=== PATIENT | male | born 1960 | race Caucasian/White ===

== ENCOUNTER 2016-07-22 17:39 | Emergency (ER) | payer BC ==
[2016-07-22 17:49] VITALS: BP 181/100
--- OUTSIDE RECORDS SUMMARY | 2016-07-22 18:00 | XMS REPORT | Continuity of Care Document ---
:1960 Author Organization [facility] ([facility]) [place] [address] Phone [phone] Care Team Providers Name Role Phone [phone], Need To Check Primary Care Provider Unavailable Source Comments This disclosure is being made pursuant to the Care Everywhere program, applicable federal and state laws, and may not contain all informaitonavailable regarding this patient.[facility] ([facility]) Active Allergies and Adverse Reactions Not on File Current Medications Not on file Active Problems Not on file Social History Tobacco Use Types Packs/Day Years Used Date Never Assessed Plan of Care Health Maintenance Due Date Last Done Comments HCV Screening 1960 Hepatitis B Vaccine (1 of 3 - Primary Series) 1960 Tdap Vaccine 1973 Lipid Disorder Screening 1980 MMR Vaccine 1980 Td Vaccine 1980 Colonoscopy 06/06/2012 Prostate Cancer Screening 2012 Influenza Vaccine: Seasonal (#1) 12/27/2015 Results from Last 3 Months Not on file
[2016-07-22] MEDS ORDERED: CEFUROXIME AXETIL 500 MG TABLET PO ONE (18:04)
[2016-07-22] MEDS ORDERED: predniSONE 20 MG TABLET PO ONE (18:04)
[2016-07-22] MEDS ORDERED: predniSONE 20 MG TABLET ONE (18:07)
[2016-07-22] MEDS ORDERED: CEFUROXIME AXETIL 500 MG TABLET ONE (18:07)
--- NOTE | 2016-07-22 18:13 | ERNOTE ---
ENT HPI Date of Service: 07/22/16 Presenting Symptoms: other - sore throat and difficulty swallowing Time Seen by Provider: 07/22/16 17:51 Source: patient - Immun/Allergies/Home Medications Immunizations: IMMUNIZATION HX Immunizations Up to Date Yes History of Influenza Vaccine Yes Hx Pneumococcal Vaccination No Allergies/Adverse Reactions: Allergies Allergy/AdvReac Type Severity Reaction Status Date / Time Penicillins Allergy Hives Verified 07/22/16 17:49 Sulfa (Sulfonamide Allergy Vomiting Verified 07/22/16 17:49 Antibiotics) [Sulfa(Sulfonamide Antibiotics)] Home Medications: HOME MEDICATIONS Cefuroxime Axetil [Ceftin] 500 mg PO BID #20 tab 07/22/16 [Last Taken Unknown] Cephalexin [Keflex] 500 mg PO BID 07/22/16 [Last Taken Unknown] Prednisone [Deltasone] 20 mg PO BID #10 tablet 07/22/16 [Last Taken Unknown] - History of Present Illness Severity: Present: moderate ENT Location: Present: throat Prearrival Treatment: Present: prescription meds Associated Symptoms - ENT: Reports: sore throat Review of Systems - Review of Systems Constitutional: Present: See HPI EYE: Present: no symptoms reported ENT: Present: sore throat Respiratory: Present: no symptoms reported Cardiology: Present: no symptoms reported Gastrointestinal/Abdominal: Present: no symptoms reported Genitourinary: Present: no symptoms reported Musculoskeletal: Present: no symptoms reported Skin: Present: no symptoms reported Neurological: Present: no symptoms reported Endocrine: Present: no symptoms reported Hematologic/Lymphatic: Present: no symptoms reported Psych: Present: no symptoms reported - Patient's Past Medical History Patient History - Medical: Arthritis, Diabetes Type 2, Obesity Patient History - Cardiac/Respiratory: Hyperlipidemia, Sleep Apnea Patient History - Cancer: No Hx of Cancer Patient History - Surgical Procedures: Other Patient History - Other: None - Family History Mother Family History - Medical: - Social History Living Situations: alone Abuse History: No History of abuse Psych History: No pertinent hx Smoking Status: Never smoker Alcohol Use: none Drug Use: none - Immunizations Immunizations Up to Date: Yes Hx Pneumococcal Vaccination: No History of Influenza Vaccine: Yes Physical Exam - Physical Exam General Appearance: Present: wd/wn, alert, moderate distress Eye Exam: Normal inspection: bilateral, PERRL: bilateral Ears, Nose, Throat: Present: hearing grossly normal, pharyngeal erythema Neck: Present: lymphadenopathy (R), lymphadenopathy (L) Respiratory: Present: no respiratory distress, normal breath sounds, no accessory muscle use, chest nontender, lungs clear Cardiovascular/Chest: Present: regular rate, rhythm, no murmur, normal peripheral pulses Gastrointestinal/Abdominal: Present: normal bowel sounds, nontender, nondistended, soft, no organomegaly Rectal Exam: Present: deferred Back Exam: Present: normal inspection, normal range of motion Extremity Exam: Present: normal inspection, non-tender, no edema, normal range of motion Neurological Exam: Present: alert, oriented, normal mood/affect Skin Exam: Present: normal color, warm/dry Lymphatic Exam: Present: no adenopathy ED Progress - Vital Signs Patient's Vital Signs:: I have reviewed the patient's vital signs. Vital Signs: Vital Signs 07/22/16 17:46 Temperature 36.2 C L Pulse Rate 73 Respiratory 14 Rate Blood Pressure 181/100 O2 Sat by Pulse 95 Oximetry - Progress/Reassessment Chief Complaint: Sore Throat Progress:: Unchanged - Transfer of Care Expected Disposition: Discharge Plan - Plan Plan: Pt is not doing well on straight Keflex, will change the antibiotic to Ceftin and add Prednisone to help with the erythema and the difficulty swallowing. Pt does not have any stridor. Departure Clinical Impression: Pharyngitis Qualifiers: Pharyngitis/tonsillitis etiology: unspecified etiology Qualified Code(s): J02.9 - Acute pharyngitis, unspecified - Departure Disposition: Home self-care Condition: Good Instructions: Pharyngitis, [id number] Prescriptions: Cefuroxime Axetil [Ceftin] 500 mg PO BID #20 tab Prednisone [Deltasone] 20 mg PO BID #10 tablet
== END 2016-07-22 18:22 | disposition home or self-care (01) ==
LOC: ER 17:39
DX: J02.9 Acute pharyngitis, unspecified (principal)

== ENCOUNTER 2020-08-01 18:30 | Observation (INO) ==
[2020-08-01] MEDS ORDERED: ONDANSETRON HCL/PF 2 MG/ML VIAL ONE (18:44)
[2020-08-01] MEDS ORDERED: ONDANSETRON HCL/PF 2 MG/ML VIAL IV ONE (18:44)
--- NOTE | 2020-08-01 19:03 | ERNOTE ---
Dizziness ER Record Date of Service: 08/01/20 Presenting Symptoms: dizziness Time Seen by Provider: 08/01/20 18:44 Source: patient Exam Limitations: no limitations Immunizations: IMMUNIZATION HX Immunizations Up to Date Yes History of Influenza Vaccine Yes Hx Pneumococcal Vaccination No Allergies/Adverse Reactions: Allergies Allergy/AdvReac Type Severity Reaction Status Date / Time Penicillins Allergy Mild Hives Verified 08/01/20 18:38 Sulfa (Sulfonamide Allergy Mild Vomiting Verified 08/01/20 18:38 Antibiotics) [Sulfa(Sulfonamide Antibiotics)] Home Medications: HOME MEDICATIONS B-complex with vitamin C 1 tab PO DAILY 11/29/18 [Last Taken Unknown] ascorbic acid (vitamin C) 1,000 mg tablet 1 g PO DAILY 11/29/18 [Last Taken Unknown] - Pain Score Pain Score #1 Pain Score: 0 - History of Present Illness Narrative: The patient is a 60 year old male who presents via EMS for dizziness which has been present since 0. There are associated symptoms of diaphoresis, nausea and vomiting. The patient denies pain. There are alleviating factors of rest. There are aggravating factors of activity. Previous treatments have included: none. The past medical history includes: DM, HTN and HLD. The social history is positive for former smoker. The patient has had no known ill contacts. Patient states he was shopping at [employer] and developed abrupt dizziness and with rest was able to resolve symptoms. Patient states that after arriving to his car he again had recurrent symptoms. Patient states that he was able to drive himself home due to resolved symptoms but then upon arrival home had recurrent symptoms and had his bring him to ER. Review of Systems - Review of Systems Constitutional: Present: diaphoresis. Absent: fever, chills EYE: Present: no symptoms reported. Absent: vision changes ENT: Present: nose congestion, nasal drainage. Absent: ear pain, sore throat Respiratory: Present: no symptoms reported. Absent: shortness of breath, cough Cardiology: Present: no symptoms reported. Absent: chest pain Gastrointestinal/Abdominal: Present: nausea, vomiting. Absent: diarrhea, abdominal pain Genitourinary: Present: no symptoms reported. Absent: dysuria, decreased urinary output Musculoskeletal: Present: no symptoms reported Skin: Present: no symptoms reported Neurological: Present: dizziness/light-headedness. Absent: headache, weakness, numbness All Other Systems: All systems neg except as marked Medical History (Last Reviewed 08/01/20 @ 18:55 by PRAKASH Miller) Deviated nasal septum Onset Date: Unknown Years ago Diabetes Onset Date: Unknown Hyperlipidemia Onset Date: Unknown Hypertension Onset Date: Unknown Surgical History: Surgical History (Last Reviewed 08/01/20 @ 18:55 by PRAKASH Miller) H/O inguinal hernia repair Onset Date: Unknown as a baby H/O lateral meniscus repair of left knee Onset Date: Unknown Dr Beck Family History: Family History (Last Reviewed 08/01/20 @ 18:55 by PRAKASH Miller) Mother , unsure-left when he was 18 No problems noted. Father Chronic emphysema syndrome Social History: (Last Reviewed 08/01/20 @ 18:55 by PRAKASH Miller) Social History: Marital status: number of children: 3 current occupational status: employed Highest level of school completed/degree received: some college, no degree Service: No Tobacco: Smoking Status: Former smoker Alcohol: alcohol intake: never Substance Use: substance use type: does not use Dietary Habits: caffeine: Yes Type: coffee eating out: rarely or never Physical Exam - Physical Exam General Appearance: Present: wd/wn, alert, mild distress Head Exam: Present: normal inspection, no evidence of injury Eye Exam: Normal inspection: bilateral, PERRL: bilateral, EOMI: bilateral Neck: Present: normal inspection, nontender Respiratory: Present: no respiratory distress, normal breath sounds, no accessory muscle use, lungs clear Cardiovascular/Chest: Present: no murmur, bradycardia Gastrointestinal/Abdominal: Present: normal bowel sounds, nontender, nondistended, soft, no organomegaly Extremity Exam: Present: extremity edema - 1+ pitting bilateral Neurological Exam: Present: alert, oriented, normal mood/affect, no motor/sensory deficits, food runner II-XII nml as tested, normal cerebellar test, other - no nystagmus, negative HINT exam, Skin Exam: Present: normal color, warm/dry Progress - Date and Time Seen: Date and Time: 08/01/20 21:50 Patient remains with improvement to symptoms intermittent nausea and without dizziness. Patient also continues to have bradycardia of rate 55-60. Normotensive. Due to per persistent intermittent symptoms of dizziness with nausea, diaphoresis and vomiting and bradycardia I have discussed case with Dr. Morocho and will plan for observation admission for continued monitoring. 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 I discussed these results and plan of care with patient and he agrees to admission for continued monitoring to rule out any cardiac events associated with symptoms. Will test for Covid and admit to observation with results. - Results and Orders Patient's Lab Results:: I have reviewed the patient's lab results. - Vital Signs Patient's Vital Signs:: I have reviewed the patient's vital signs. Vital Signs: Vital Signs 08/01/20 18:32 Temperature 35.8 C L Pulse Rate 57 L Respiratory Rate 16 Blood Pressure 138/72 O2 Sat by Pulse Oximetry 100 - EKG EKG #1 EKG: NSR - bradycardia, nonspecific ST T wave changes EKG read: Reviewed by me - X-Ray X-Ray #1 X-Ray: chest Interpretation: Reviewed by me X-ray Comments: IMPRESSION: No consolidation. Borderline cardiac silhouette enlargement. Electronically signed by Rajeev Huffman D.O.. - CT/Ultrasound CT/Ultrasound Narrative: Real radiology preliminary report CT head without contrast No CT evidence of acute intracranial abnormality. Left maxillary mall air-fluid level with frothy secretions, may represent acute sinusitis. IMPRESSION: No acute intracranial hemorrhage or mass effect. 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 MR or CT angiogram could be considered to further evaluate. Discussed with PRAKASH Miller via telephone on 08/01/2020 9:23 PM. Electronically signed by Rajeev Huffman D.O.. No radiology preliminary report CT angio chest with MIP postprocessing Negative for acute pulmonary artery embolism. Thoracic aorta of normal caliber without dissection. No consolidation pleural effusion or pneumothorax Severe spondylosis - Progress/Reassessment Chief Complaint: Dizziness Departure Clinical Impression: Dizziness, Bradycardia - Departure Disposition: Still a patient Condition: Good
[2020-08-01 19:12] LABS: Hematocrit 42.8 % (42.0-52.0); Hemoglobin 14.7 gm/dL (13.5-18.0); Mean Corpuscular Hemoglobin 28.2 pg (27-31); Mean Corpuscular Hgb Conc 34.3 g/dl (32-36); Mean Platelet Volume 9.6 fl (8-11.3); Neutrophil # 4.2 K/mm3 (1.3-6.0); Neutrophil % 69.6 % (42-75.0); Platelet Count 196 K/mm3 (150-450); Red Blood Count 5.22 M/mm3 (4.7-6.0); Red Cell Distribution Width 12.2 % (11.5-14.0); White Blood Count 6.1 K/mm3 (4.0-10.5)
[2020-08-01 19:39] LABS: ALT 34 U/L (19-67); AST 20 U/L (0-48); Albumin * 4.1 gm/dl (3.4-5.0); Alkaline Phosphatase * 60 U/L (50-170); Anion Gap 17.2 mmol/L (6.8-13.8); BUN/Creatinine Ratio 18.8 (9.0-21.6); Bilirubin, Total 0.8 mg/dL (0.0-1.1); Blood Urea Nitrogen 22 mg/dL (6-23); Ca. Corrected For Albumin 9.1 mg/dL (8.4-10.2); Calcium * 9.5 mg/dL (7.9-10.9); Carbon Dioxide 25.3 mmol/L (24-32.6); Chloride 100 mmol/L (97-106); Glucose * 154 mg/dL (70-110); Potassium 3.5 mmol/L (3.4-4.6); Sodium 139 mmol/L (132-142); Total Protein 7.6 gm/dL (6.2-8.2)
[2020-08-01 19:41] LABS: Troponin I Less than 0.017 ng/mL (0.00-0.10)
[2020-08-01 20:08] LABS: Prothrombin Time (Patient) 10.9 Seconds (9.1-10.7)
[2020-08-01 20:12] LABS: INR 1.05 INR (0.92-1.08); Partial Thrombolplastin Time 23.8 Seconds (24-32)
[2020-08-01] MEDS ORDERED: NORMAL SALINE 500 ML IV PRN (21:48)
[2020-08-01] MEDS ORDERED: ONDANSETRON HCL/PF 2 MG/ML VIAL IV PRN (22:10)
[2020-08-01 23:36] LABS: Urine Bilirubin Negative (NEGATIVE); Urine Blood Negative /ul (NEGATIVE); Urine Ketone 15 mg/dL (NEGATIVE); Urine Nitrite Negative (NEGATIVE); Urine Protein Negative (NEGATIVE); Urine Urobilinogen Normal (NORMAL); Urine pH 8.5 pH (5.0-7.0)
[2020-08-01 23:37] LABS: Urine Appearance Clear (CLEAR); Urine Bacteria None Seen; Urine Color Yellow; Urine RBC None Seen /hpf (0-5); Urine WBC None Seen /hpf (0-5)
[2020-08-02] MEDS ORDERED: FLU VACC QS2020-21(6MOS UP)/PF 60 MCG/0.5 ML SYRINGE IM ONE (09:00)
[2020-08-02] MEDS ORDERED: HYDROCHLOROTHIAZIDE 12.5 MG CAPSULE PO SCH (09:00)
[2020-08-02] MEDS ORDERED: LISINOPRIL 10 MG TABLET PO SCH (09:00)
[2020-08-02] MEDS ORDERED: NON-FORMULARY 1 DOSE DOSE (Lisinopril/Hydrochlorothiazide [Lisinopril-Hctz 10-12.5 Mg Tab] PO SCH (09:00)
--- NOTE | 2020-08-02 10:05 | HPDIS ---
Chief Complaint - Chief Complaint Date of Service: 08/02/20 Time of Service: 09:20 Chief Complaint: dizziness, nausea, vomiting, diarrhea History of Present Illness: Patient was brought to the ED yesterday for several episodes of sudden onset di zziness, diaphoresis, nausea, vomiting, and diarrhea. He'd been feeling well previously. His fluid intake was reduced for the last couple of days because he was busy at work. He reports his lunch wasn't very good yesterday, and his 1st dizzy episode was 5-6 hours after he ate. Workup in the ED did not show significant abnormality. EKG showed sinus bradycardia, with HR in the 50's. Anion gap of 17 and his glucose was elevated to 152. 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 His HR was 88 the morning following admission. He feels comfortable going home today. Will order an MRI to further investigate his basilar artery. He is prescribed phentermine temporarily each year to help with weight loss. That elevates his BP, so he takes 10-12.5 mg lisinopril-HCTZ when he takes the phentermine. It's not helping him lose weight this year, so will DC both meds. His presentation is felt to be related to decreased po intake, and possible gastroenteritis or food poisoning. Recommend drinking plenty of fluids the next few days. Medical History (Last Reviewed 08/02/20 @ 00:26 by Glendy Carr RN) Deviated nasal septum Onset Date: Unknown Years ago Diabetes Onset Date: Unknown Hyperlipidemia Onset Date: Unknown Hypertension Onset Date: Unknown Surgical History: Surgical History (Last Reviewed 08/02/20 @ 00:26 by Glendy Carr RN) H/O inguinal hernia repair Onset Date: Unknown as a baby H/O lateral meniscus repair of left knee Onset Date: Unknown Dr Beck Family History: Family History (Last Reviewed 08/02/20 @ 00:26 by Glendy Carr RN) Mother , unsure-left when he was 18 No problems noted. Father Chronic emphysema syndrome Social History: (Last Reviewed 08/02/20 @ 00:26 by Glendy Carr RN) Social History: Marital status: number of children: 3 current occupational status: employed Highest level of school completed/degree received: some college, no degree Service: No Tobacco: Smoking Status: Former smoker Alcohol: alcohol intake: never Substance Use: substance use type: does not use Dietary Habits: caffeine: Yes Type: coffee eating out: rarely or never Review Of Systems (GEN) - Review of Systems Generalized/Overall Review: Absent: Fever Respiratory: Absent: Cough, Shortness of Breath Cardiac: Absent: Chest Pain, Edema Abdominal: Present: Nausea, Vomiting, Diarrhea Genitourinary: Present: No Symptoms Reported Neurological: Present: Other - dizziness Immunizations: IMMUNIZATION HX Immunizations Up to Date Yes History of Influenza Vaccine Yes Hx Pneumococcal Vaccination No Allergies/Adverse Reactions: Allergies Allergy/AdvReac Type Severity Reaction Status Date / Time Penicillins Allergy Mild Hives Verified 08/01/20 18:38 Sulfa (Sulfonamide Allergy Mild Vomiting Verified 08/01/20 18:38 Antibiotics) [Sulfa(Sulfonamide Antibiotics)] Home Medications: HOME MEDICATIONS B-complex with vitamin C 1 tab PO DAILY 11/29/18 [Last Taken Unknown] ascorbic acid (vitamin C) 1,000 mg tablet 1 g PO DAILY 11/29/18 [Last Taken Unknown] Exam - Exam Vital Signs: Vital Signs - Last Taken Temp 37.4 C 08/02/20 07:06 Pulse 74 08/02/20 07:06 Resp 16 08/02/20 07:06 BP 133/82 08/02/20 07:06 Pulse Ox 98 08/02/20 07:06 Constitutional: Present: Alert, Cooperative, No distress, Morbidly obese Respiratory: Present: lungs clear, normal breath sounds, no respiratory distress Cardiovascular/Chest: Present: regular rate, rhythm Abdomen: Present: obese Extremity: Absent: lower extremity edema Eye contact: Present: cooperative, good eye contact Diagnostic Studies: Abnormal Lab Results 08/01/20 08/01/20 08/01/20 Range/Units 19:05 19:05 19:05 Immature Gran % (Auto) 0.50 H (0.001-0.429) % Lymphocytes % 18.8 L (20-51) % Lymphocytes # 1.14 L (1.5-3.5) k/mm3 PT 10.9 H (9.1-10.7) Seconds PTT (Todd) 23.8 L (24-32) Seconds D-Dimer (0.19-0.49) ug/mL Anion Gap 17.2 H (6.8-13.8) mmol/L Random Glucose 154 H (70-110) mg/dL 08/01/20 Range/Units 19:05 Immature Gran % (Auto) (0.001-0.429) % Lymphocytes % (20-51) % Lymphocytes # (1.5-3.5) k/mm3 PT (9.1-10.7) Seconds PTT (Divide) (24-32) Seconds D-Dimer 0.67 H (0.19-0.49) ug/mL Anion Gap (6.8-13.8) mmol/L Random Glucose (70-110) mg/dL Laboratory Results WBC 6.1 K/mm3 (4.0-10.5) 08/01/20 19:05 RBC 5.22 M/mm3 (4.7-6.0) 08/01/20 19:05 Hgb 14.7 gm/dL (13.5-18.0) 08/01/20 19:05 Hct 42.8 % (42.0-52.0) 08/01/20 19:05 MCV 82.0 fl (78-100) 08/01/20 19:05 MCH 28.2 pg (27-31) 08/01/20 19:05 MCHC 34.3 g/dl (32-36) 08/01/20 19:05 RDW 12.2 % (11.5-14.0) 08/01/20 19:05 Plt Count 196 K/mm3 (150-450) 08/01/20 19:05 MPV 9.6 fl (8-11.3) 08/01/20 19:05 Immature Gran % (Auto) 0.50 % (0.001-0.429) H 08/01/20 19:05 Immature Gran # (Auto) 0.03 K/mm3 (0.000-0.0310) 08/01/20 19:05 Neutrophils % 69.6 % (42-75.0) 08/01/20 19:05 Lymphocytes % 18.8 % (20-51) L 08/01/20 19:05 Monocytes % 9.0 % (0.0-9) 08/01/20 19:05 Eosinophils % 1.8 % (0.0-3.0) 08/01/20 19:05 Basophils % 0.3 % (0.0-1.0) 08/01/20 19:05 Nucleated RBC % 0.0 k/mm3 (0-1) 08/01/20 19:05 Neutrophils # 4.2 K/mm3 (1.3-6.0) 08/01/20 19:05 Lymphocytes # 1.14 k/mm3 (1.5-3.5) L 08/01/20 19:05 Monocytes # 0.6 k/mm3 (0.0-1.0) 08/01/20 19:05 Eosinophils # 0.1 k/mm3 (0.0-0.7) 08/01/20 19:05 Absolute Basophils 0.0 k/mm3 (0.0-0.1) 08/01/20 19:05 PT 10.9 Seconds (9.1-10.7) H 08/01/20 19:05 INR (Anticoag Therapy) 1.05 INR (0.92-1.08) 08/01/20 19:05 PTT (Todd) 23.8 Seconds (24-32) L 08/01/20 19:05 D-Dimer 0.67 ug/mL (0.19-0.49) H 08/01/20 19:05 Sodium 139 mmol/L (132-142) 08/01/20 19:05 Plasma Sodium 140 mmol/L (130-142) 08/01/20 19:05 Potassium 3.5 mmol/L (3.4-4.6) 08/01/20 19:05 Chloride 100 mmol/L (97-106) 08/01/20 19:05 Carbon Dioxide 25.3 mmol/L (24-32.6) 08/01/20 19:05 Anion Gap 17.2 mmol/L (6.8-13.8) H 08/01/20 19:05 BUN 22 mg/dL (6-23) 08/01/20 19:05 Creatinine 1.17 mg/dL (0.4-1.4) 08/01/20 19:05 Est GFR (Non-Af Amer) 68 mL/min (60-130) D 08/01/20 19:05 BUN/Creatinine Ratio 18.8 (9.0-21.6) 08/01/20 19:05 Random Glucose 154 mg/dL (70-110) H 08/01/20 19:05 Calcium 9.5 mg/dL (7.9-10.9) 08/01/20 19:05 Calcium Adj for Albumin 9.1 mg/dL (8.4-10.2) 08/01/20 19:05 Total Bilirubin 0.8 mg/dL (0.0-1.1) 08/01/20 19:05 AST 20 U/L (0-48) 08/01/20 19:05 ALT 34 U/L (19-67) 08/01/20 19:05 Alkaline Phosphatase 60 U/L (50-170) 08/01/20 19:05 Troponin I Less than 0.017 ng/mL (0.00-0.10) 08/01/20 19:05 B-Natriuretic Peptide 11 pg/mL (5-175) 08/01/20 19:05 Total Protein 7.6 gm/dL (6.2-8.2) 08/01/20 19:05 Albumin 4.1 gm/dl (3.4-5.0) 08/01/20 19:05 Urine Color Yellow 08/01/20 23:15 Urine Appearance Clear (CLEAR) 08/01/20 23:15 Urine pH 8.5 pH (5.0-7.0) 08/01/20 23:15 Ur Specific [place] 1.010 SP.GR. (1.005-1.030) 08/01/20 23:15 Urine Protein Negative mg/dL (NEGATIVE) 08/01/20 23:15 Urine Glucose (UA) Negative mg/dL (NEGATIVE) 08/01/20 23:15 Urine Ketones 15 mg/dL (NEGATIVE) 08/01/20 23:15 Urine Blood Negative /ul (NEGATIVE) 08/01/20 23:15 Urine Nitrate Negative (NEGATIVE) 08/01/20 23:15 Urine Bilirubin Negative mg/dl (NEGATIVE) 08/01/20 23:15 Urine Urobilinogen Normal EU/dl (NORMAL) 08/01/20 23:15 Ur Leukocyte Esterase Negative /ul (NEGATIVE) 08/01/20 23:15 Urine RBC None seen /hpf (0-5) 08/01/20 23:15 Urine WBC None seen /hpf (0-5) 08/01/20 23:15 Ur Epithelial Cells 0-5 /hpf (0-5) 08/01/20 23:15 Urine Bacteria None seen (NONE) 08/01/20 23:15 Urine Culture Comments No culture indicated 08/01/20 23:15 SARS-CoV-2 (PCR) Not detected (NotDetected) 08/01/20 21:53 Assessment/Plan - Assessment/Plan (1) Food poisoning Problem: Suspected (2) Dizziness Problem: Acute (3) Bradycardia Problem: Acute (4) Nausea and vomiting Problem: Acute (5) Diarrhea Problem: Acute (1) Food poisoning Problem: Suspected (2) Dizziness Problem: Resolved (3) Bradycardia Problem: Resolved (4) Nausea and vomiting Problem: Resolved (5) Diarrhea Problem: Resolved Date of Discharge:: 08/02/20 Hospital Course: see above Procedures Performed: none Results and Findings: Lab Pending Results 08/01/20 19:05: WBC 6.1, RBC 5.22, Hgb 14.7, Hct 42.8, MCV 82.0, MCH 28.2, MCHC 34.3, RDW 12.2, Plt Count 196, MPV 9.6, Immature Gran % (Auto) 0.50 H, Immature Gran # (Auto) 0.03, Neutrophils % 69.6, Lymphocytes % 18.8 L, Monocytes % 9.0, Eosinophils % 1.8, Basophils % 0.3, Nucleated RBC % 0.0, Neutrophils # 4.2, Lymphocytes # 1.14 L, Monocytes # 0.6, Eosinophils # 0.1, Absolute Basophils 0.0 08/01/20 19:05: PT 10.9 H, INR (Anticoag Therapy) 1.05, PTT (Divide) 23.8 L 08/01/20 19:05: Sodium 139, Plasma Sodium 140, Potassium 3.5, Chloride 100, Carbon Dioxide 25.3, Anion Gap 17.2 H, BUN 22, Creatinine 1.17, Est GFR (Non-Af Amer) 68 D, BUN/Creatinine Ratio 18.8, Random Glucose 154 H, Calcium 9.5, Calcium Adj for Albumin 9.1, Total Bilirubin 0.8, AST 20, ALT 34, Alkaline Phosphatase 60, Troponin I Less than 0.017, Total Protein 7.6, Albumin 4.1 08/01/20 19:05: D-Dimer 0.67 H 08/01/20 19:05: B-Natriuretic Peptide 11 08/01/20 21:53: SARS-CoV-2 (PCR) Not detected 08/01/20 23:15: Urine Color Yellow, Urine Appearance Clear, Urine pH 8.5, Ur Specific [place] 1.010, Urine Protein Negative, Urine Glucose (UA) Negative, Urine Ketones 15, Urine Blood Negative, Urine Nitrate Negative, Urine Bilirubin Negative, Urine Urobilinogen Normal, Ur Leukocyte Esterase Negative, Urine RBC None seen, Urine WBC None seen, Ur Epithelial Cells 0-5, Urine Bacteria None seen, Urine Culture Comments No culture indicated Discharge Location: Home Disposition: Home self-care Condition: Good Discharge Activity: Activity as tolerated Discharge Diet: Resume usual diet Referrals: Anali Morocho DO [Primary Care Provider] - One Week Complete Home Medications List: Complete Home Medication List: B-complex with vitamin C 1 tab PO DAILY 11/29/18 ascorbic acid (vitamin C) 1,000 mg tablet 1 g PO DAILY 11/29/18 Forms: Patient Portal Registration
[2020-08-02 11:01] VITALS: BP 120/78
== END 2020-08-02 11:19 | disposition home or self-care (01) ==
LOC: ER 18:30 → MS 18:30
PROVIDERS: ADMIT Family Medicine; ATTEND Family Medicine